=== PATIENT | male | born 1990 | race African-American/Black ===

== ENCOUNTER 2016-12-31 13:24 | Day surgery (SDC) ==
[2016-12-31] MEDS ORDERED: CLINDAMYCIN 600 MG/NS 50 ML IV ONE (15:03)
[2016-12-31] MEDS ORDERED: DECADRON IV ONE (15:03)
[2016-12-31] MEDS ORDERED: MORPHINE IV ONE (15:04)
[2016-12-31] MEDS ORDERED: NS 1,000 ML IV ONE (15:04)
--- NOTE | 2016-12-31 15:05 | PROVIDER DOCUMENTATION ---
HPI-EENT General - General Chief Complaint: Sore Throat Stated Complaint: SORE THROAT Time Seen by Provider: 12/31/16 14:58 Source: patient Allergies/Adverse Reactions: Patient Allergies Allergy/AdvReac Type Severity Reaction Status Date / Time No Known Allergies Allergy Verified 12/31/16 13:29 - History of Present Illness-EENT General Nature of Presenting Problem: 26 year old AAM presents with c/o sore throat x 7 days, fever to 103 at home, difficulty swallowing, deeper voice than normal. unable to sleep, decreased intake/output. EENT Location: reports: throat Quality of Pain: reports: aching, dull Severity: reports: moderate Onset/Duration: reports: 1 week ago Timing: reports: still present, constant, getting worse Prearrival Treatment: Initiated no prearrival treatment Associated Symptoms: reports: facial pain/swelling, fever, malaise, poor fluid intake, poor solids intake, sore throat, voice change Review of Systems - Adult - REVIEW OF SYSTEMS - ADULT Constitutional: reports: see HPI, chills, fever. denies: fatique Eyes: reports: no symptoms reported. denies: discharge, blurred vision, double vision Ears, Nose, Mouth & Throat: reports: see HPI, hoarseness, throat pain, throat swelling. denies: ear discharge, ear pain, hearing loss, tinnitus, epistaxis, sinus problem, nose pain, loose teeth, mouth/dental pain, mouth swelling Cardiovascular: reports: no symptoms reported. denies: chest pain, palpitations , syncope Respiratory: reports: no symptoms reported. denies: chronic cough, cough, shortness of breath, wheezing Gastrointestinal: reports: no symptoms reported. denies: abdominal pain, diarrhea, nausea, vomiting Genitourinary: reports: no symptoms reported. denies: dysuria, hematuria, urgency Musculoskeletal: reports: no symptoms reported. denies: bone pain, joint pain, joint swelling, neck pain Integumentary: reports: no symptoms reported. denies: hives, itching, rash, skin sores/ulcer Neurological: reports: no symptoms reported. denies: ataxia, dizziness/vertigo , tremors Psychiatric: reports: no symptoms reported. denies: anxiety, anti-depressant use Endocrine: reports: no symptoms reported Hematologic/Lymphatic: reports: see HPI, swollen lymph nodes Allergic/Immunologic: reports: no symptoms reported. denies: frequent infections All Other Systems: Reviewed and Negative Past History - Adult - PAST MEDICAL HISTORY-ADULT Review of Records: reports: Old Records Reviewed, Nursing Assessment Review, Medications Reviewed, Social history reviewed & non-contributory. Major Childhood Illnesses: reports: denies history Cardiovascular: reports: denies history Respiratory: reports: denies history Gastrointestinal: reports: denies history Obstetrical/Gynecological: reports: denies history Genitourinary: reports: denies history Musculoskeletal: reports: denies history Neurological: reports: denies history Endocrine/Immune: reports: denies history Other Conditions: reports: denies history - PRIOR SURGERIES/PROCEDURES Surgical/Procedure History: reports: none - PRIOR HOSPITALIZATIONS Prior Hospitalizations: reports: none - IMMUNIZATION STATUS Childhood Immunizations: See Nurse Assessment Flu Vaccine: See Nurse Assessment - FAMILY HISTORY Family History: reviewed, not pertinent - SOCIAL HISTORY Smoking: denies Substance Use: none/never Alcohol Use Frequency: never Physical Exam- EENT - Physical Exam EENT Initial Vital Signs Reviewed: Yes General Appearance: appears well, alert, mild distress, moderate distress. negative: no apparent distress, severe distress Eye Exam: bilateral eye: normal inspection Ear Exam: bilateral ear: auricle normal, canal normal, TM normal Nasal Exam: normal inspection Throat Exam: pharynx swelling, pharynx tenderness, tonsillar exudate, tonsillar swelling, trismus, uvula swelling (shift to left), voice changes. negative: pharynx normal, excessive drooling, foreign body, mandibular swelling, maxillary swelling, tongue swollen Neck: non-tender, full range of motion, supple, normal inspection, lymphadenopathy. negative: limited range of motion, tender lateral, tender midline Respiratory: chest non-tender, lungs clear, normal breath sounds, no pleuratic chest pain, no respiratory distress, no accessory muscle use Cardiovascular: normal peripheral pulses, regular rate, rhythm Abdominal Exam: normal bowel sounds, non tender, soft, no organomegaly, no pulsatile mass Lymphatic: cervical node tenderness, enlargement. negative: striations, streaking Back Exam: normal inspection, no CVA tenderness, no vertebral tenderness Extremity: normal range of motion, non-tender, normal gait, normal inspection, no pedal edema, no calf tenderness, normal capillary refill Integumentary: normal color, normal turgor, warm/dry Neurologic: grossly normal, no motor/sensory deficits Psych/Mental Status: normal mood/affect, normal thought content, normal thought process, oriented x 3 Progress - PLAN OF CARE/RESULTS Progress/Plan/Lab Results: Laboratory Tests 12/31/16 12/31/16 12/31/16 14:08 15:20 15:20 WBC 9.03 RBC 5.16 Hgb 15.3 Hct 45.3 MCV 87.8 MCH 29.7 MCHC 33.8 RDW Std Deviation 12.7 Plt Count 229 MPV 10.1 Immature Gran % (Auto) 0.1 Neut % (Auto) 69.8 Lymph % (Auto) 19.8 L [place] % (Auto) 9.4 H Eos % (Auto) 0.3 Baso % (Auto) 0.6 Immature Gran # (Auto) 0.01 Neut # (Auto) 6.30 Lymph # (Auto) 1.79 [place] # (Auto) 0.85 H Eos # (Auto) 0.03 Baso # (Auto) 0.05 Sodium 136 Potassium 4.0 Chloride 99 Carbon Dioxide 25 Anion Gap 12 BUN 8 Creatinine 0.8 Estimated GFR/1.73 m2 > 60 BUN/Creatinine Ratio 10 Glucose 102 Calculated Osmolality 270 Calcium 9.8 Total Bilirubin 0.40 AST 15 ALT 12 Alkaline Phosphatase 94 Total Protein 8.7 H Albumin 4.8 Globulin 4.0 Albumin/Globulin Ratio 1.0 Group A Strep Rapid NEGATIVE Orders Category Date Time Status NECK W/CONTRAST [CT] Stat Exams 12/31/16 15:07 Completed CBC WITH DIFF [HEME] Stat Lab 12/31/16 15:20 Completed CMP [COMPREHENSIVE METABOLIC PANEL] [CHEM] Stat Lab 12/31/16 15:[address] Stat Lab 12/31/16 14:[address] Stat Lab 12/31/16 15:28 Ordered 0.9% Sodium Chloride Inj [Ns] 1,000 ml Med 12/31/16 15:04 Discontinued IV 999 mls/hr Clindamycin 600 mg/Ns 50 ml Med 12/31/16 15:03 Discontinued IV NOW Dexamethasone [Decadron] Med 12/31/16 15:03 Discontinued 10 mg IV NOW ONE Morphine Med 12/31/16 15:04 Discontinued 4 mg IV NOW ONE Vital Signs - 24 hr 12/31/16 13:27 Temperature 98.2 F Pulse Rate 105 H Respiratory 16 Rate Blood Pressure 142/79 O2 Sat by Pulse 99 Oximetry Reviewed case with Dr. Fidencio, agrees with plan of care, admit. Spoke with Dr. Bro, he is aware pt will be coming to ED for evaluation by Dr. Bee. - CT/MRI 1 CT Study: Neck Impression: Abnormal (tonsillar abscess, see report for additional findings. per Dr. Shelton) - CONSULTS/PCP/HOSPITALIST Notification #1 *Consult/PCP/Hospitalist*: Dr. Bee-ENT Time Discussed: 17:32 Consult Disposition: Will see in ED, Admit (transfer to the ED at and he will evaluate in the ED.) Departure - Departure Time of Disposition Order: 17:29 DIAGNOSIS: Abscess of tonsil Disposition: ADMITTED INPATIENT 09 Certified Medical Emergency: Emergent Condition: Stable Referrals: None,PCP [Primary Care Provider] - Attestation - Physician/ KAYLA Attestation Patient care was provided by Advanced Practice Provider:: Yes Advanced Practice Provider:: Sharon Jernigan Advanced Practice Provider documentation review:: The Mid-level provider documentation, treatment plan and medical decision making was reviewed by the physician who agrees with all treatment and medical decision making by the MLP.
[2016-12-31 15:56] LABS: AGAP 12; ALBUMIN 4.8 g/dL (3.5-5.0); ALKALINE PHOSPHATASE 94 U/L (32-122); BUN 8 mg/dL (8-22); CALCIUM 9.8 mg/dL (8.8-10.2); CHLORIDE 99 mmol/L (98-107); COSMO 270; GOT 15 U/L (10-34); GPT 12 U/L (10-44); SODIUM 136 mmol/L (136-145); TCO2 25 mmol/L (25-35); TOTAL PROTEIN 8.7 g/dL (6.3-8.3)
[2016-12-31 15:58] LABS: MANUAL DIFF NEEDED? NO
[2016-12-31 16:10] LABS: BASO% 0.6 % (0.0-0.8); EOS# 0.03 X1000 (0.0-0.7); EOS% 0.3 % (0.0-10.0); HEMATOCRIT 45.3 % (42.0-52.0); HEMOGLOBIN 15.3 g/dL (14.0-18.0); IMM GRAN# 0.01 X1000 (0.0-0.04); IMM GRAN% 0.1 % (0.0-0.5); LYMPH# 1.79 X1000 (1.2-3.4); LYMPH% 19.8 % (20.5-51.1); MCH 29.7 PG (27-31); MCHC 33.8 g/dL (33-37); MCV 87.8 FL (81-99); MONO# 0.85 X1000 (0.11-0.59); MONO% 9.4 % (1.7-9.3); MPV 10.1 FL (7.4-10.4); NEUT% 69.8 % (42.2-75.2); PLT 229 X1000 (130-400); RBC 5.16 XMIL (4.7-6.1)
--- NOTE | 2016-12-31 17:28 | Diag Imaging Result Document ---
PROCEDURE NAME: NECK W/CONTRAST - 12/31/2016 CT NECK WITH INTRAVENOUS CONTRAST: FINDINGS: The right tonsil is enlarged and there is a hypodense area within it measuring 8 x 13 mm. There are prominent bilateral scattered lymph nodes measuring up to 25mm. No precervical soft tissue swelling. The parotid and submandibular glands are symmetrical. Normal larynx and thyroid. Large dense calcification in the left lung apex. IMPRESSION: Right tonsillar abscess with enlarged lymph nodes and slight tracheal deviation from the right to the left. A preliminary report was given at 5:10 PM. MTDD
[2016-12-31] MEDS ORDERED: NAROPIN 0.2% ONE (19:10)
[2016-12-31] MEDS: CLINDAMYCIN 600 MG/NS 50 ML ONE ×2 (19:55)
[2016-12-31] MEDS ORDERED: DIPRIVAN 1% ONE (20:30)
[2016-12-31] MEDS ORDERED: HYDROCODONE/APAP 7.5-325/15 ML PO PRN (21:05)
[2016-12-31 21:07] VITALS: BP 156/81
--- NOTE | 2017-01-01 04:32 | OPERATIVE NOTE ---
PROCEDURE DATE: 12/31/2016 PREOPERATIVE DIAGNOSIS: Right peritonsillar abscess. POSTOPERATIVE DIAGNOSIS: Right peritonsillar abscess. PROCEDURE: Incision and drainage of right peritonsillar abscess. COMPLICATIONS: None. DESCRIPTION OF PROCEDURE: The patient was identified, consented, brought to the operating room, placed in supine position where general anesthesia was induced with endotracheal intubation. The right tonsil was analyzed. Needle aspiration of purulent material was performed to the right mid- pole of the tonsil. The incision was created in the mucosa, the anterior tonsil pillar, and taken down to the abscess cavity. Cultures were taken. The abscess cavity was lanced and drained and flushed with clindamycin irrigation and saline solution. The patient tolerated procedure well. Throat was irrigated. Hemostasis was achieved. He was allowed to recover from anesthesia, extubated, and transferred to the recovery room in stable condition.
[2017-01-01] MEDS ORDERED: LR 1,000 ML ONE (07:16)
[2017-01-01] MEDS ORDERED: QUELICIN (DOSE) ONE (07:16)
[2017-01-01] MEDS ORDERED: ANESTHESIA PB SET 88 IN 5742 ONE (07:16)
[2017-01-01] MEDS ORDERED: EXTENSION SET 32 IN 4522 ONE (07:16)
[2017-01-01] MEDS ORDERED: ZOFRAN ONE (07:16)
[2017-01-01] MEDS ORDERED: XYLOCAINE-MPF 2% ONE (07:16)
[2017-01-01] MEDS ORDERED: ROBINUL ONE (07:16)
== END 2016-12-31 22:14 | disposition home or self-care (01) ==
LOC: P.ED 13:24 → ED 19:40 → UNDOADMOB 21:11 → 4N 21:11 → OPS 21:11 → UNDODISOB 22:14 → OPS 22:14
PROVIDERS: ATTEND Otolaryngology Otolaryngology/Facial Plastic Surgery
DX: J36 Peritonsillar abscess (principal)
CPT/HCPCS: 70491; 80053; 85025; 87070; 87075; 87077; 87081; 87205; 87430; 96365; 96375; J0330; J2270; J2405; J2795; J7030; J7120; Q9967; S0077